=== PATIENT | male | born 1960 | race African-American/Black ===

== ENCOUNTER 2017-02-23 18:07 | Emergency (ER) | payer SELFPAY ==
[~2017-02-23] VITALS: Ht 185.4 cm; Wt 78.9 kg
[~2017-02-23 18:07] MED LIST: FLUO20SO2 OR
[2017-02-23] MEDS ORDERED: TYLE325T5 PO (18:44)
--- NOTE | 2017-02-23 20:15 | ED PDOC ---
Post-Departure Follow-Up SPOKE WITH PT REGARDING VISIT TODAY. PT HAS A COUPLE MEDICAL COMPLAINTS (RIGHT ELBOW SWELLING, LEFT LEG/GROIN PAIN) AND THEN STATES HE IS, "SICK OF BEING SHIT ON BY EVERYONE ELSE." STATES HE LIVES IN A RUNDOWN HOUSE, ABOVE A COUPLE , "AND HE TREATS HIS LIKE SHIT. 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 DENIES ANY ACTIVE SUICIDAL OR HOMICIDAL THOUGHTS OR PLANS, BUT STATES , "SOME DAYS, I'M GLAD I DON'T HAVE A GUN OR ANY WEAPONS OF MASS DESTRUCTION. I THOUGHT ABOUT TELLING THE TRIAGE NURSE I WAS SUICIDAL BECAUSE I NEED 72 HOURS TO RELAX AND NOT BE STRESSED OUT." PT STATES HE FEELS HE WILL SNAP ONE DAY IF ANY ONE ELSE TAKES ADVANTAGE OF THE FACT THAT HE HELPS THEM WHEN NEEDED, BUT GETS NOTHING IN RETURN. KALEN HERZOG PA-C Feb 23, 2017 20:15
--- NOTE | 2017-02-23 20:40 | REPUSA ---
CLINICAL HISTORY: Pain. COMMENTS: Real time sonography with duplex doppler of the left lower extremity was performed with attention to the major deep venous structures. Evaluation reveals the left common femoral, superficial femoral and popliteal veins to be completely compressible without intraluminal thrombus. There is normal spontaneous phasic flow and augmentation. The greater saphenous/common femoral vein junction is patent. IMPRESSION: No evidence of DVT in left lower extremity.. Thank you for your kind referral of this patient.
[2017-02-23] MEDS ORDERED: NAPR500T PO (21:20)
[2017-02-23 21:23] VITALS: BP 130/84
--- NOTE | 2017-02-24 08:12 | REP ---
Clinical: Radiculopathy. Left lower extremity pain. Technique: AP, lateral, bilateral oblique and coned-down views of the lumbosacral spine. Findings: Alignment and lordosis maintained. No acute fracture / compression injury or subluxation. Mild multilevel degenerative changes include endplate sclerosis, early anterior spurring, and disc space narrowing. Impression: Mild multilevel degenerative changes Signed by Jonathan Ford MD 02/24/2017 08:04 A
== END 2017-02-23 21:31 | disposition home or self-care (01) ==
LOC: M ED 19:46
DX: M70.21 Olecranon bursitis, right elbow (principal); M54.16 Radiculopathy, lumbar region; Z91.030 Bee allergy status; F17.210 Nicotine dependence, cigarettes, uncomplicated

== ENCOUNTER 2017-03-23 05:26 | Inpatient (IN) | payer MEDICAID, SELFPAY ==
[~2017-03-23] VITALS: Ht 185.4 cm; Wt 74.4 kg
[~2017-03-23 05:26] MED LIST changes: +NAPR500T PO; +TYLE325T5 PO
[2017-03-23] MEDS ORDERED: HALOPERIDOL 5 MG/ML VIAL (J1630) IM ONE (05:45)
[2017-03-23] MEDS ORDERED: diphenhydrAMINE INJ 50MG/ML VIAL (J1200) IM ONE (05:45)
[2017-03-23] MEDS ORDERED: LORazepam 2 MG/ML VIAL (J2060) IM ONE (05:45)
[2017-03-23 06:22] LABS: MEAN CORPUSCULAR HEMOGLOBIN 33.2 pg (27.0-33.0); MEAN CORPUSCULAR HGB CONC 32.5 g/dl (32.0-36.5); MEAN CORPUSCULAR VOLUME 101.9 fl (80.0-96.0); WHITE BLOOD COUNT 4.3 K/mm3 (4.0-10.0)
[2017-03-23 06:51] LABS: ALBUMIN/GLOBULIN RATIO 1.29 (1.00-1.93); ALKALINE PHOSPHATASE 88 U/L (45-117); ALT/SGPT 21 U/L (12-78); ANION GAP 10 MEQ/L (8-16); AST/SGOT 22 U/L (15-37); BILIRUBIN,DIRECT < 0.1 MG/DL (0.0-0.2); BILIRUBIN,TOTAL 0.2 MG/DL (0.2-1.0); BLOOD UREA NITROGEN 18 MG/DL (7-18); CALCIUM LEVEL 7.8 MG/DL (8.5-10.1); CARBON DIOXIDE LEVEL 22 MEQ/L (21-32); CHLORIDE LEVEL 115 MEQ/L (98-107); CREATININE FOR GFR 1.19 MG/DL (0.70-1.30); GLOMERULAR FILTRATION RATE > 60.0 (>56); GLUCOSE, FASTING 107 MG/DL (70-105); POTASSIUM SERUM 3.6 MEQ/L (3.5-5.1); SODIUM LEVEL 147 MEQ/L (136-145); TOTAL PROTEIN 7.1 GM/DL (6.4-8.2)
[2017-03-23 07:47] LABS: METHADONE URINE NEGATIVE (NEGATIVE)
[2017-03-23] MEDS: NICOTINE 21MG/24HR 1 EA TRANSDERMAL TD SCH (09:00)
[2017-03-23] MEDS ORDERED: MAALOX 30 ML SUSP *UDC PO PRN (17:30)
[2017-03-23] MEDS ORDERED: LORazepam 2 MG TAB PO PRN (17:30)
[2017-03-23] MEDS ORDERED: MOM 30ML SUSPENSION UDC PO PRN (17:30)
[2017-03-23] MEDS ORDERED: ACETAMINOPHEN TAB 650MG DOSE (2X325MG) PO PRN (17:30)
[2017-03-23] MEDS ORDERED: NAPR500T2 PO (17:35)
[2017-03-23] MEDS ORDERED: THIAMINE 100 MG TAB PO ONE (17:45)
[2017-03-23 18:48] VITALS: BP 133/86
[2017-03-23 19:43] VITALS: BP 133/86
[2017-03-23] MEDS: MULTIVITAMINS/MINERALS THERAP 1 TAB PO SCH (22:17)
[2017-03-23] MEDS: FOLIC ACID 1 MG TAB PO SCH (22:17)
[2017-03-23] MEDS: traZODone 50 MG TAB PO PRN (22:17)
[2017-03-24 06:40] VITALS: BP 140/71
[2017-03-24] MEDS: NICOTINE 21MG/24HR 1 EA TRANSDERMAL TD SCH (09:00)
--- NOTE | 2017-03-24 09:38 | HPEPDOC ---
Medical History and Physical Date of Admission Mar 23, 2017 at 17:25 History and Physical PCP: None ATTENDING: Dr. Garcia Edwards HPI: 56yoF admitted to [facility] for MDD and substance use, being medically examined today. No acute medical complaints today. Pt becomes agitated with providing medical history. Denies any fevers, chills, weakness, fatigue, HURLEY, CP, SOB, cough, palpitations, abdominal pain, N/V/D or changes in bowel or bladder habits. PMHx: Depression Anxiety Tobacco use reduced vision- wears glasses. Chronic LBP. XR LS spine 02/23/17 degenerative changes. PSHX: cyst removed Left thigh 2014 SOCHX: Resides in: [place] Marital Status: Kids: 3 Employment: unemployed Tobacco use: 1ppd ETOH: states he consumes alcohol, but states he does not know how much. Illicit Drugs: Denies IV Drug Use: Denies Tattoos done unprofessionally: Denies FAMHX: Mother: Pt states unknown Father: , alcohol use, cirrhosis Siblings: 2 brothers, 2 sisters Alive, Pt states unknown Children: Unknown. Patient states they are adopted. ROS: As noted in HPI, otherwise 11pt ROS of systems reviewed and unremarkable. PE: GEN: 56yoM, appears older than stated age. Well-nourished, well developed. No acute distress. Alert and oriented x 3. Agitated at times during interview. HEENT: Normocephalic, atraumatic. Pupils are equal, round, and reactive to light. Extraocular movements are intact. No nystagmus appreciated. Sclera are nonicteric. Conjunctiva without injection. Nose midline. Nasal turbinates without bogginess. EACs both patent BL. TMs both visualized and gomez with good cone of light, no bulging or erythema. No facial asymmetry. Moist mucous membranes. Dentition fair. Pharynx pink and moist, no cobblestoning. Neck supple , trachea midline. No lymphadenopathy or thyromegaly appreciated. CHEST: Regular rate and rhythm, +S1, +S2 LUNGS: Clear to auscultation bilaterally. No wheezes, rales, or rhonchi. Breathing appears symmetric and easy. Patient is speaking in full sentences. No accessory muscle use. ABD: Round, soft, non-tender, non-distended. +Bowel sounds throughout. No rebound or guarding. No costovertebral angle tenderness. EXT: Pulses 2+ bilaterally dorsalis pedis and radial. No lower extremity edema appreciated. SKIN: [place], dry, warm. Capillary refill <2sec. No rashes. NEURO: Alert and oriented x 3. Cranial nerves III-XII are intact. No focal deficits appreciated. EKG: pending. A&P: 56yoF admitted to [facility] for MDD 1. Psych. Plan per Psychiatry. Obtain baseline EKG to assure the safety of psychiatric medications as they can prolong the QT interval. 2. Nicotine dependence. Patch available. 3. Hypernatremia. Pt states he is eating and drinking. Sodium noted to be 147. Recheck CMP. 4. Follow up. No Primary Care Provider. Will attempt to establish PCP on discharge. 5. H/O Substance abuse. Per psychiatry. Continue with MVI, Thiamine, and Folic Acid supplementation. 6. Staff member Ed present throughout exam. Vital Signs Vital Signs Date Time Temp Pulse Resp B/P (MAP) Pulse Ox O2 Delivery O2 Flow Rate FiO2 03/24/17 06:40 99.7 72 16 140/71 (94) 03/23/17 18:48 98 Room Air Laboratory Data Labs 24H Item Value Date Time Sodium Level 147 MEQ/L H 03/23/17 0612 Potassium Level 3.6 MEQ/L 03/23/17 0612 Chloride Level 115 MEQ/L H 03/23/17 0612 Carbon Dioxide Level 22 MEQ/L 03/23/17 0612 Anion Gap 10 MEQ/L 03/23/17 0612 Blood Urea Nitrogen 18 MG/DL 03/23/17 0612 Creatinine 1.19 MG/DL 03/23/17 0612 Glomerular Filtration Rate > 60.0 03/23/17 0612 Fasting Glucose 107 MG/DL H 03/23/17 0612 Calcium Level 7.8 MG/DL L 03/23/17 0612 Total Bilirubin 0.2 MG/DL 03/23/1712 Direct Bilirubin < 0.1 MG/DL 03/23/1712 Aspartate Amino Transf (AST/SGOT) 22 U/L 03/23/17 0612 Alanine Aminotransferase (ALT/SGPT) 21 U/L 03/23/17 0612 Alkaline Phosphatase 88 U/L 03/23/17 0612 Total Protein 7.1 GM/DL 4/26/17 0612 Albumin 4.0 GM/DL 03/23/17611 Albumin/Globulin Ratio 1.29 03/23/17611 Thyroid Stimulating Hormone (TSH) 1.710 uIU/ML 03/23/17611 White Blood Count 4.3 K/mm3 03/23/17611 Red Blood Count 3.98 M/mm3 L 03/23/1712 Hemoglobin 13.2 g/dl L 03/23/1712 Hematocrit 40.6 % L 03/23/17611 Mean Corpuscular Volume 101.9 fl H 03/23/17611 Mean Corpuscular Hemoglobin 33.2 pg H 03/23/17611 Mean Corpuscular Hemoglobin Concent 32.5 g/dl 03/23/17611 Red Cell Distribution Width 12.0 % 03/23/17611 Platelet Count 196 k/mm3 03/23/17611 Salicylates Level 3.3 MG/DL L 03/23/17611 Urine Opiates Screen NEGATIVE 03/23/17 0709 Urine Methadone Screen NEGATIVE 03/23/17 0709 Acetaminophen Level < 2.0 UG/ML L 03/23/17611 Urine Barbiturates Screen NEGATIVE 03/23/17 0709 Urine Phencyclidine Screen NEGATIVE 03/23/17 0709 Urine Amphetamines Screen NEGATIVE 03/23/17 0709 Urine Benzodiazepines Screen NEGATIVE 03/23/17 0709 Urine Cocaine Metabolite Screen NEGATIVE 03/23/17 0709 Urine Cannabinoids Screen POSITIVE H 03/23/17 0709 Ethyl Alcohol Level 0.245 % H 03/23/17611 Home Medications Scheduled PRN Acetaminophen (Tylenol) 325 Mg Tab, 650 MG PO Q4H PRN for PAIN OR FEVER Naproxen (Naproxen) 500 Mg Tab, 500 MG PO BID PRN for PAIN Allergies Coded Allergies: Wasp Venom Protein (Verified Allergy, Unknown, ANAPHYLAXIS, 03/23/17) PT CARRIES AN EPIPEN. Thuy Torres Mar 24, 2017 09:38
[2017-03-24] MEDS: MULTIVITAMINS/MINERALS THERAP 1 TAB PO SCH (09:55)
[2017-03-24] MEDS: THIAMINE 100 MG TAB PO SCH ×2 (09:55→21:35)
[2017-03-24] MEDS: FOLIC ACID 1 MG TAB PO SCH (09:55)
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
[2017-03-24 12:05] VITALS: BP 122/75
[2017-03-24 12:06] VITALS: BP 122/75
[2017-03-24 18:00] VITALS: BP 147/79
[2017-03-24] MEDS: traZODone 50 MG TAB PO PRN (21:35)
[2017-03-24 22:05] VITALS: BP 147/79
[2017-03-25 07:13] VITALS: BP 127/65
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
[2017-03-25 07:38] LABS: MEAN CORPUSCULAR HEMOGLOBIN 33.3 pg (27.0-33.0); MEAN CORPUSCULAR HGB CONC 33.1 g/dl (32.0-36.5); MEAN CORPUSCULAR VOLUME 100.5 fl (80.0-96.0); RED CELL DISTRIBUTION WIDTH 11.6 % (11.5-14.5); WHITE BLOOD COUNT 4.1 K/mm3 (4.0-10.0)
[2017-03-25 07:50] LABS: ANION GAP 7 MEQ/L (8-16); BLOOD UREA NITROGEN 18 MG/DL (7-18); CALCIUM LEVEL 8.6 MG/DL (8.5-10.1); CARBON DIOXIDE LEVEL 26 MEQ/L (21-32); CHLORIDE LEVEL 109 MEQ/L (98-107); CREATININE FOR GFR 1.16 MG/DL (0.70-1.30); GLOMERULAR FILTRATION RATE > 60.0 (>56); GLUCOSE, FASTING 99 MG/DL (70-105); POTASSIUM SERUM 4.1 MEQ/L (3.5-5.1); SODIUM LEVEL 142 MEQ/L (136-145)
[2017-03-25] MEDS: FOLIC ACID 1 MG TAB PO SCH (08:18)
[2017-03-25] MEDS: chlordiazePOXIDE 25 MG CAP PO SCH ×3 (08:18→20:45)
[2017-03-25] MEDS: MULTIVITAMINS/MINERALS THERAP 1 TAB PO SCH (08:19)
[2017-03-25] MEDS: THIAMINE 100 MG TAB PO SCH ×2 (08:19→20:45)
[2017-03-25] MEDS: NICOTINE 21MG/24HR 1 EA TRANSDERMAL TD SCH (08:20)
[2017-03-25 18:00] VITALS: BP 145/75
[2017-03-26 06:30] VITALS: BP 113/56
[2017-03-26] MEDS: FOLIC ACID 1 MG TAB PO SCH (07:46)
[2017-03-26] MEDS: chlordiazePOXIDE 25 MG CAP PO SCH ×3 (07:46→20:22)
[2017-03-26] MEDS: THIAMINE 100 MG TAB PO SCH (07:46)
[2017-03-26] MEDS: MULTIVITAMINS/MINERALS THERAP 1 TAB PO SCH (07:46)
[2017-03-26] MEDS: NICOTINE 21MG/24HR 1 EA TRANSDERMAL TD SCH (07:47)
--- NOTE | 2017-03-26 08:06 | ECGEPIP ---
Stationary ECG Study [facility] Test Date: 2017-03-25 Pat Name: RON MORELOS Department: Room: [place] [address] Gender: M Technical Instructor: LYNNE : 1960 Requested By: Thuy Torres Order Number: [id number] Reading MD: Andrea Wang Measurements Intervals [place] Rate: 70 P: 70 CO: 176 QRS: 68 QRSD: 90 T: 57 QT: 391 QTc: 422 Interpretive Statements Normal sinus rhythm Delayed anterior R wave progression Comparison tracing not on file Electronically Signed On 03-26-2017 8:06:31 EDT by Andrea Wang
[2017-03-26] MEDS: FLUoxetine 20 MG CAP PO SCH (09:27)
[2017-03-26 18:00] VITALS: BP 126/74
[2017-03-26] MEDS: traZODone 100 MG TAB PO PRN (20:22)
[2017-03-26] MEDS: NAPROXEN 250 MG TAB PO SCH (20:36)
[2017-03-27 07:00] VITALS: BP 124/75
[2017-03-27] MEDS: chlordiazePOXIDE 25 MG CAP PO SCH ×3 (08:22→20:06)
[2017-03-27] MEDS: MULTIVITAMINS/MINERALS THERAP 1 TAB PO SCH (08:22)
[2017-03-27] MEDS: FLUoxetine 20 MG CAP PO SCH (08:22)
[2017-03-27] MEDS: FOLIC ACID 1 MG TAB PO SCH (08:22)
[2017-03-27] MEDS: NAPROXEN 250 MG TAB PO SCH ×2 (08:22→20:07)
[2017-03-27] MEDS: NICOTINE 21MG/24HR 1 EA TRANSDERMAL TD SCH (08:24)
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
[2017-03-27 18:00] VITALS: BP 141/84
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
[2017-03-27] MEDS: traZODone 100 MG TAB PO PRN (20:06)
[2017-03-28 06:39] VITALS: BP 103/64
[2017-03-28] MEDS ORDERED: FLUO20CA9 PO (08:33)
[2017-03-28] MEDS: NICOTINE 21MG/24HR 1 EA TRANSDERMAL TD SCH (08:47)
[2017-03-28] MEDS: FLUoxetine 20 MG CAP PO SCH (08:50)
[2017-03-28] MEDS: chlordiazePOXIDE 25 MG CAP PO SCH (08:50)
[2017-03-28] MEDS: NAPROXEN 250 MG TAB PO SCH (08:50)
[2017-03-28] MEDS: MULTIVITAMINS/MINERALS THERAP 1 TAB PO SCH (08:50)
[2017-03-28] MEDS: FOLIC ACID 1 MG TAB PO SCH (08:50)
[2017-03-28] MEDS ORDERED: PROZ20CA11 PO (14:25)
[2017-03-28] MEDS ORDERED: PARO10SS GT (14:25)
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
== END 2017-03-28 10:00 | disposition home or self-care (01) | DRG 752 ==
LOC: M ED 08:08 → M ED INP 17:25 → M PSY 18:37
PROVIDERS: ADMIT Psychiatry & Neurology Psychiatry; ATTEND Psychiatry & Neurology Child & Adolescent Psychiatry
DX: F60.5 Obsessive-compulsive personality disorder (principal); E87.0 Hyperosmolality and hypernatremia; F10.20 Alcohol dependence, uncomplicated; F17.200 Nicotine dependence, unspecified, uncomplicated; Z91.038 Other insect allergy status

== ENCOUNTER 2017-03-28 13:48 | Emergency (ER) | payer MEDICAID, SELFPAY ==
[~2017-03-28 13:48] MED LIST changes: +FLUO20CA9 PO; +NAPR500T2 PO
[2017-03-28] MEDS ORDERED: PROZ20CA11 PO (14:25)
[2017-03-28] MEDS ORDERED: PARO10SS GT (14:25)
[2017-03-28 14:38] LABS: BASO % 0.5 % (0.0-1.0); EOS # 0.2 K/mm3 (0.0-0.50); EOS % 3.8 % (0.0-3.0); LARGE UNSTAINED CELL # 0.1 K/mm3 (0.0-0.4); LARGE UNSTAINED CELL % 1.3 % (0.0-4.0); LYMPH # 1.4 K/mm3 (1.5-4.5); LYMPH % 21.4 % (24.0-44.0); MEAN CORPUSCULAR HEMOGLOBIN 32.4 pg (27.0-33.0); MEAN CORPUSCULAR HGB CONC 32.4 g/dl (32.0-36.5); MEAN CORPUSCULAR VOLUME 100.1 fl (80.0-96.0); MONO # 0.3 K/mm3 (0.0-0.8); MONO % 5.5 % (0.0-5.0); NEUTROPHILS % 67.4 % (36.0-66.0); PLATELET COUNT, AUTOMATED 176 k/mm3 (150-450); RED CELL DISTRIBUTION WIDTH 11.7 % (11.5-14.5)
[2017-03-28 14:51] LABS: ALBUMIN 3.8 GM/DL (3.2-5.2); ALBUMIN/GLOBULIN RATIO 1.23 (1.00-1.93); ALKALINE PHOSPHATASE 66 U/L (45-117); ALT/SGPT 20 U/L (12-78); ANION GAP 3 MEQ/L (8-16); AST/SGOT 19 U/L (15-37); BILIRUBIN,DIRECT 0.1 MG/DL (0.0-0.2); BILIRUBIN,TOTAL 0.7 MG/DL (0.2-1.0); BLOOD UREA NITROGEN 20 MG/DL (7-18); CALCIUM LEVEL 8.7 MG/DL (8.5-10.1); CARBON DIOXIDE LEVEL 29 MEQ/L (21-32); CHLORIDE LEVEL 108 MEQ/L (98-107); CREATININE FOR GFR 1.16 MG/DL (0.70-1.30); GLOMERULAR FILTRATION RATE > 60.0 (>56); GLUCOSE, FASTING 92 MG/DL (70-105); POTASSIUM SERUM 3.9 MEQ/L (3.5-5.1); SODIUM LEVEL 140 MEQ/L (136-145); TOTAL PROTEIN 6.9 GM/DL (6.4-8.2)
[2017-03-28 15:18] VITALS: BP 129/74
== END 2017-03-28 15:22 | disposition home or self-care (01) ==
LOC: EDBD 13:48 → M ED 14:50
DX: R53.81 Other malaise (principal); R53.83 Other fatigue; F10.10 Alcohol abuse, uncomplicated; Z79.899 Other long term (current) drug therapy; Z91.038 Other insect allergy status
CPT/HCPCS: 36415; 80048; 80076; 85025; 99282; G0480

== ENCOUNTER 2017-05-05 08:10 | Emergency (ER) | payer MEDICAID, OTHER ==
[~2017-05-05] VITALS: Ht 185.4 cm; Wt 72.6 kg
[~2017-05-05 08:10] MED LIST changes: +PARO10SS GT; +PROZ20CA11 PO
[2017-05-05 08:18] VITALS: BP 139/80
[2017-05-05 09:35] LABS: MEAN CORPUSCULAR HEMOGLOBIN 34.1 pg (27.0-33.0); MEAN CORPUSCULAR HGB CONC 33.3 g/dl (32.0-36.5); MEAN CORPUSCULAR VOLUME 102.4 fl (80.0-96.0); RED CELL DISTRIBUTION WIDTH 12.3 % (11.5-14.5)
[2017-05-05 10:02] LABS: METHADONE URINE NEGATIVE (NEGATIVE)
[2017-05-05 10:15] LABS: ALBUMIN 3.7 GM/DL (3.2-5.2); ALBUMIN/GLOBULIN RATIO 1.16 (1.00-1.93); ALKALINE PHOSPHATASE 77 U/L (45-117); ALT/SGPT 35 U/L (12-78); ANION GAP 4 MEQ/L (8-16); AST/SGOT 24 U/L (15-37); BILIRUBIN,DIRECT 0.1 MG/DL (0.0-0.2); BILIRUBIN,TOTAL 0.3 MG/DL (0.2-1.0); BLOOD UREA NITROGEN 16 MG/DL (7-18); CALCIUM LEVEL 8.9 MG/DL (8.5-10.1); CARBON DIOXIDE LEVEL 30 MEQ/L (21-32); CHLORIDE LEVEL 111 MEQ/L (98-107); CREATININE FOR GFR 1.06 MG/DL (0.70-1.30); GLOMERULAR FILTRATION RATE > 60.0 (>56); GLUCOSE, FASTING 82 MG/DL (70-105); SODIUM LEVEL 145 MEQ/L (136-145); TOTAL PROTEIN 6.9 GM/DL (6.4-8.2)
== END 2017-05-05 10:26 | disposition home or self-care (01) ==
LOC: M ED 08:43
DX: F32.9 Major depressive disorder, single episode, unspecified (principal); F10.10 Alcohol abuse, uncomplicated; F17.200 Nicotine dependence, unspecified, uncomplicated; Z79.1 Long term (current) use of non-steroidal anti-inflammatories (NSAID); Z79.899 Other long term (current) drug therapy

== ENCOUNTER 2017-05-05 22:08 | Emergency (ER) | payer OTHER ==
[2017-05-06 00:33] LABS: MEAN CORPUSCULAR HEMOGLOBIN 32.8 pg (27.0-33.0); MEAN CORPUSCULAR HGB CONC 32.1 g/dl (32.0-36.5); MEAN CORPUSCULAR VOLUME 102.4 fl (80.0-96.0); RED CELL DISTRIBUTION WIDTH 12.4 % (11.5-14.5); WHITE BLOOD COUNT 4.6 K/mm3 (4.0-10.0)
[2017-05-06 00:54] LABS: METHADONE URINE NEGATIVE (NEGATIVE)
[2017-05-06 01:07] LABS: ALBUMIN 3.6 GM/DL (3.2-5.2); ALBUMIN/GLOBULIN RATIO 1.24 (1.00-1.93); ALKALINE PHOSPHATASE 74 U/L (45-117); ALT/SGPT 31 U/L (12-78); ANION GAP 6 MEQ/L (8-16); AST/SGOT 23 U/L (15-37); BILIRUBIN,DIRECT 0.1 MG/DL (0.0-0.2); BILIRUBIN,TOTAL 0.2 MG/DL (0.2-1.0); BLOOD UREA NITROGEN 17 MG/DL (7-18); CALCIUM LEVEL 8.6 MG/DL (8.5-10.1); CARBON DIOXIDE LEVEL 27 MEQ/L (21-32); CHLORIDE LEVEL 115 MEQ/L (98-107); CREATININE FOR GFR 1.15 MG/DL (0.70-1.30); GLOMERULAR FILTRATION RATE > 60.0 (>56); GLUCOSE, FASTING 58 MG/DL (70-105); POTASSIUM SERUM 3.6 MEQ/L (3.5-5.1); SODIUM LEVEL 148 MEQ/L (136-145); TOTAL PROTEIN 6.5 GM/DL (6.4-8.2)
[2017-05-06 05:30] VITALS: BP 127/73
== END 2017-05-06 11:25 | disposition home or self-care (01) ==
LOC: M ED 22:55
DX: F43.22 Adjustment disorder with anxiety (principal); F10.129 Alcohol abuse with intoxication, unspecified; F17.200 Nicotine dependence, unspecified, uncomplicated; Z79.899 Other long term (current) drug therapy

== ENCOUNTER 2018-07-12 14:35 | Emergency (ER) | payer MEDICAID, SELFPAY, OTHER ==
[2018-07-12] MEDS: BACLOFEN 10 MG TAB PO ×2 (15:54)
[2018-07-12] MEDS: PERCOCET 5MG/325MG TAB PO ×2 (15:56)
== END 2018-07-12 16:51 | disposition home or self-care (01) ==
LOC: M ED 14:35
DX: S33.5XXA Sprain of ligaments of lumbar spine, initial encounter (principal); X50.0XXA Overexertion from strenuous movement or load, initial encounter; Y92.9 Unspecified place or not applicable; Y93.89 Activity, other specified; Y99.9 Unspecified external cause status; F42.9 Obsessive-compulsive disorder, unspecified; F41.9 Anxiety disorder, unspecified; F32.9 Major depressive disorder, single episode, unspecified; Z72.0 Tobacco use; F12.10 Cannabis abuse, uncomplicated
CPT/HCPCS: 99283

== ENCOUNTER 2018-07-21 10:56 | Emergency (ER) | payer MEDICAID, SELFPAY ==
[2018-07-21] MEDS: diphenhydrAMINE 25 MG CAP PO ×2 (11:48)
== END 2018-07-21 12:09 | disposition home or self-care (01) ==
LOC: M ED 10:56
DX: T63.441A Toxic effect of venom of bees, accidental (unintentional), initial encounter (principal)
CPT/HCPCS: 99282

== ENCOUNTER 2021-02-19 18:44 | Inpatient (IN) | payer MEDICAID, SELFPAY ==
[~2021-02-19] VITALS: Ht 185.4 cm; Wt 86.5 kg
[~2021-02-19 18:44] MED LIST changes: +BACL10TA2 PO; +BENA25CA4 PO; +FLUO20CA22 PO; -FLUO20CA9 PO; +HYDR-3715 PO; +NAPR-837 PO; +NAPR-885 PO; -NAPR500T PO; -NAPR500T2 PO
[2021-02-19] MEDS ORDERED: LIDOCAINE 2% 5ML JELLY UROJET TOP ONE (19:00)
[2021-02-19] MEDS ORDERED: MIDAZOLAM 5MG/ML 1ML VIAL (J2250 PER 1MG) IM ONE ×2 (19:25→20:50)
[2021-02-19 21:34] LABS: HEMATOCRIT 42.7 % (42.0-52.0); MEAN CORPUSCULAR HEMOGLOBIN 33.3 pg (27.0-33.0); MEAN CORPUSCULAR HGB CONC 32.8 g/dl (32.0-36.5); MEAN CORPUSCULAR VOLUME 101.4 fl (80.0-96.0); PLATELET COUNT, AUTOMATED 199 10^3/uL (150-450); RED BLOOD COUNT 4.21 10^6/uL (4.30-6.10)
[2021-02-19 21:46] LABS: AMPHETAMINES LEVEL URINE NEGATIVE (NEGATIVE); BARBITURATES URINE NEGATIVE (NEGATIVE); BENZODIAZEPINES URINE POSITIVE (NEGATIVE); CANNABINOIDS URINE POSITIVE (NEGATIVE); COCAINE METABOLITE URINE NEGATIVE (NEGATIVE); METHADONE URINE NEGATIVE (NEGATIVE); OPIATES URINE NEGATIVE (NEGATIVE); PHENCYCLIDINE URINE NEGATIVE (NEGATIVE)
[2021-02-19 21:57] LABS: ACETAMINOPHEN LEVEL < 2.0 UG/ML (10.0-30.0); ALBUMIN 3.8 GM/DL (3.2-5.2); ALT/SGPT 56 U/L (12-78); BILIRUBIN,DIRECT 0.1 MG/DL (0.0-0.2); BILIRUBIN,TOTAL 0.3 MG/DL (0.2-1.0); BLOOD UREA NITROGEN 14 MG/DL (7-18); CALCIUM LEVEL 8.8 MG/DL (8.5-10.1); CARBON DIOXIDE LEVEL 25 MEQ/L (21-32); CHLORIDE LEVEL 112 MEQ/L (98-107); CREATININE FOR GFR 1.15 MG/DL (0.70-1.30); ETHYL ALCOHOL (ETHANOL) 0.264 % (0.000-0.010); GLOMERULAR FILTRATION RATE > 60.0 (>56); GLUCOSE, FASTING 85 MG/DL (70-100); POTASSIUM SERUM 3.6 MEQ/L (3.5-5.1); SALICYLATE LEVEL 3.9 MG/DL (5.0-30.0); SODIUM LEVEL 148 MEQ/L (136-145); TOTAL PROTEIN 7.2 GM/DL (6.4-8.2)
[2021-02-20] MEDS ORDERED: LORazepam 2 MG/ML VIAL IM ONE (00:10)
[2021-02-20] MEDS ORDERED: diphenhydrAMINE 50MG/ML VIAL (J1200) IM ONE (00:10)
[2021-02-20] MEDS ORDERED: HALOPERIDOL 5MG/ML VIAL (J1630 PER 1) IM ONE (00:10)
[2021-02-20] MEDS ORDERED: HALOPERIDOL 5MG/ML VIAL (J1630 PER 1) As Ordered ONE (00:11)
[2021-02-20] MEDS ORDERED: diphenhydrAMINE 50MG/ML VIAL (J1200) As Ordered ONE (00:11)
[2021-02-20] MEDS ORDERED: LORazepam 2 MG/ML VIAL As Ordered ONE (00:12)
[2021-02-20] MEDS: NICOTINE 21MG/24HR 1 EA TRANSDERMAL TD SCH (09:00)
[2021-02-20 09:40] LABS: RSV AMPLIFICATION NEGATIVE (NEGATIVE)
[2021-02-20] MEDS ORDERED: traZODone 50 MG TAB PO PRN (10:50)
[2021-02-20] MEDS ORDERED: ACETAMINOPHEN TAB 650MG DOSE (2X325MG) PO PRN (10:50)
[2021-02-20] MEDS ORDERED: MOM 30ML SUSPENSION UDC PO PRN (10:50)
[2021-02-20] MEDS ORDERED: MAALOX 30 ML SUSP *UDC PO PRN (10:50)
[2021-02-20 13:41] VITALS: BP 160/71
[2021-02-21 06:44] VITALS: BP 144/78
[2021-02-21] MEDS: NICOTINE 21MG/24HR 1 EA TRANSDERMAL TD SCH (08:48)
[2021-02-21 17:49] VITALS: BP 146/88
--- NOTE | 2021-02-21 21:04 | WAPSY-INT ---
[facility] PSYCH INITIAL ASSESSMENT DATE OF ADMISSION: 02/20/2021 DATE OF EVALUATION: 02/21/2021 HISTORY OF PRESENT ILLNESS: This patient is a 60-year-old male with a significant history of alcohol abuse and actually some depression. He was brought to the hospital after police received calls from witnesses who stated that the patient was trying to jump of the [address] bridge when the police arrived. He was rambling about a manager flight operations making him mad and about needing to get back to his mother's . The police stated that the patient actually attempted to jump off the bridge and they had to pull him down and he was very aggressive the whole time that he was being brought in the police car. He was banging his head and he reported he had been suicidal for a week. The patient stated that he basically is homeless and has been living in the streets basically. He admitted to hearing voices, specifically a man who tells him that "he needs a roommate". Today the patient was very angry and he would not answer any of my questions. He just wanted to know if he was going to be discharged today and when I told him he was not, he got up and left the room and slammed the door. PAST PSYCHIATRIC HISTORY: I am not really able to obtain information from the patient but I did review records from a prior hospitalization through the [facility] in, I believe it was 2017. At that time he had trouble with abusing alcohol too and he was reporting that he was feeling depressed, but it was felt that his main problem was alcohol abuse then. I did not see in that record that he had any history of suicidal attempts, but again I did not obtain direct history from the patient today. FAMILY HISTORY: Unknown. MEDICAL HISTORY: Unknown. SUBSTANCE ABUSE: The patient does have a significant history of abusing alcohol and toxicology was positive for cannabis. Abuse history is unknown whether he has had any history of abuse. PHYSICAL EXAMINATION: VITAL SIGNS: Blood pressure 144/78, pulse 70 and respirations 16. GENERAL APPEARANCE: He did not appear to be in any apparent distress. MUSCULOSKELETAL: I did not notice any problems with his gait or any involuntary movements in his extremities. I was not able to review other systems because the patient basically stormed out of the room. MENTAL STATUS EXAMINATION: I am not really able to complete the exam as the patient stormed out of the room. DIAGNOSIS: 1. Unspecified depressive disorder. 2. Alcohol use disorder. TREATMENT PLAN: At this point we will monitor the patient for possible withdrawal symptoms. So far his vitals are slightly increased. As I said this morning it was 144/78. We will further monitor him for his mood symptoms and consider medications if indicated. The patient did come in where he was apparently trying to jump off a bridge and so I really feel that we need to monitor him further for any suicidal thoughts and mood symptoms. MTDCaitlin
[2021-02-21] MEDS ORDERED: traZODone 50 MG TAB PO ONE (22:05)
[2021-02-22] MEDS ORDERED: LORazepam 1 MG TAB PO ONE (03:25)
[2021-02-22] MEDS: NICOTINE 21MG/24HR 1 EA TRANSDERMAL TD SCH (09:00)
[2021-02-22 17:26] VITALS: BP 142/82
[2021-02-22] MEDS: risperiDONE 1 MG TAB PO SCH (20:32)
[2021-02-22] MEDS: traZODone 50 MG TAB PO PRN (20:33)
[2021-02-23 06:43] VITALS: BP 141/78
[2021-02-23] MEDS: FLUoxetine 20 MG CAP PO SCH (08:01)
[2021-02-23] MEDS: NICOTINE 21MG/24HR 1 EA TRANSDERMAL TD SCH (08:01)
[2021-02-23 16:36] VITALS: BP 129/76
[2021-02-23] MEDS: risperiDONE 1 MG TAB PO SCH (20:24)
[2021-02-23] MEDS: traZODone 50 MG TAB PO PRN (20:26)
--- NOTE | 2021-02-23 23:17 | MHIPN ---
PROGRESS NOTE DATE: 02/23/2021 SUBJECTIVE: I am depressed and I have poor self esteem. I am homeless. OBJECTIVE: He is a 60-year-old male with history of depressive disorders, who was admitted because of suicidal thoughts, wanted to jump off the bridge. Currently isolating, not willing to go to the groups, depressed, however, compliant with his medications. He reported that he was noncompliant before coming to the hospital. MENTAL STATUS EXAMINATION: Appearance: Casually dressed, cooperative. Eye contact: Normal. Speech: Conversant. Affective: Constricted. Mood: Depressed. Thought process: Linear, goal directed. Thought content: Denied any delusions. Denied any suicidal or homicidal ideas. He is alert and oriented to time, place and person. Insight and judgment are poor. Vital Signs: Temperature 98.5, pulse 69, respiratory rate 16, blood pressure 129/76, pulse oximetry 95%. Labs: CBC within normal limits. Chemistries within normal limits. Toxicology: He was positive for cannabis and benzodiazepines. DIAGNOSIS: Depressive disorder not otherwise specified. PLAN: Continue: 1. Fluoxetine 20 mg once daily. 2. Risperidone 1 mg at night. 3. Trazodone 150 mg h.s. p.r.n. ESTIMATED LENGTH OF STAY: 3 to 4 days. TIME SPENT ON EVALUATION: 25 minutes.
[2021-02-24 06:24] VITALS: BP 137/75
[2021-02-24] MEDS: NICOTINE 21MG/24HR 1 EA TRANSDERMAL TD SCH (08:19)
[2021-02-24] MEDS: FLUoxetine 20 MG CAP PO SCH (08:20)
[2021-02-24 16:33] VITALS: BP 131/73
--- NOTE | 2021-02-24 17:04 | MHIPN ---
[facility] PROGRESS NOTE DATE: 02/22/2021 The patient today states that he did not sleep at all last night. He had taken his trazodone 50 mg and then I had to order another 50 mg for him. He tells me that he is always depressed, but he says then he ran out of Prozac recently, he is not sure of the dose. He says that in the past he was prescribed Risperdal although he is not sure of the dose and he really felt that that helped his mood. MENTAL STATUS EXAMINATION: This patient is alert and oriented times three. He is pleasant, he is cooperative today, he is verbally spontaneous. He says that his mood is depressed, affect appropriate. He denies suicidal or homicidal ideation, and he is not psychotic. There is no formal thought disorder noted. Concentration fair. Memory intact. Insight and judgment is fair. DIAGNOSES: Unspecified depressive disorder. Alcohol use disorder. Cannabis use disorder. TREATMENT PLAN: At this point, the patient is feeling very depressed and he says that this is chronic, so we will start the patient on Prozac 20 mg and Risperdal 1 mg nightly, and we will continue to monitor for mood symptoms and for continued resolution of suicidal ideation.
[2021-02-24] MEDS: traZODone 50 MG TAB PO PRN (20:34)
[2021-02-24] MEDS: risperiDONE 1 MG TAB PO SCH (20:34)
--- NOTE | 2021-02-24 22:22 | MHIPN ---
PROGRESS NOTE DATE: 02/24/2021 SUBJECTIVE: I feel fine. I should go out tomorrow. OBJECTIVE: He is a 60-year-old male who has a history of depression, attempted suicide by jumping off a bridge and was brought to the police. Currently patient is improving, interacting with peers and staff. Denies any suicidal thoughts. MENTAL STATUS EXAMINATION: Casually dressed with clean clothes. Cooperative. Made good eye contact. Speech rate, rhythm and volume are good. Mood is euthymic. Affect is appropriate for the mood. Denied any suicidal or homicidal ideas. Thought content; no delusions. His insight and judgment are fair. His memory remote, recent, and immediate are good. DIAGNOSIS: Major depressive disorder recurrent. Vital signs: Temperature 98.0, respiratory rate 16, pulse 68, blood pressure 131/73, pulse oximetry 99%. Toxicology was positive for benzodiazepines and cannabis. CURRENT MEDICATIONS: 1. Fluoxetine 20 mg in the a.m. 2. Risperidone 1 mg at night. PLAN: Continue current medications. Consider discharging him tomorrow to [facility].
[2021-02-25 06:31] VITALS: BP 134/74
[2021-02-25] MEDS: FLUoxetine 20 MG CAP PO SCH (08:04)
[2021-02-25] MEDS: NICOTINE 21MG/24HR 1 EA TRANSDERMAL TD SCH (08:04)
[2021-02-25] MEDS ORDERED: FLUO20CA22 PO (09:40)
[2021-02-25] MEDS ORDERED: RISP-8 PO (09:40)
[2021-02-25] MEDS ORDERED: TRAZ-252 PO (09:40)
--- NOTE | 2021-02-25 11:30 | HPEPDOC ---
[facility] Medical History & Physical Date of Admission Feb 23, 2021 Date of Service: Feb 25, 2021 Vital Signs Vital Signs Date Time Temp Pulse Resp B/P (MAP) Pulse Ox O2 Delivery O2 Flow Rate FiO2 02/25/21 06:31 99.1 67 18 134/74 (94) 99 Room Air Home Medications Scheduled Fluoxetine Hcl (Fluoxetine HCl) 20 Mg Capsule, 20 MG PO QAM for depression Risperidone (Risperidone) 1 Mg Tablet, 1 MG PO QHS for mood Scheduled PRN Trazodone HCl (Trazodone HCl) 50 Mg Tablet, 150 MG PO QHSP PRN for INSOMNIA Allergies Coded Allergies: No Known Allergies (Unverified , 05/05/17) A-FIB/CHADSVASC A-FIB History Current/History of A-Fib/PAF?: No JEREMY MCKEON MD Feb 25, 2021 11:30
--- NOTE | 2021-02-25 11:42 | MHDS ---
[facility] DISCHARGE SUMMARY DATE OF ADMISSION: 02/20/2021 DATE OF DISCHARGE: 02/25/2021 DIAGNOSIS: Major depressive disorder, recurrent. IDENTIFYING DATA: He is a 60-year-old male with a history of depressive disorder. Was admitted because of suicidal thoughts. Wanted to jump off the bridge. For details of history of present illness (HPI), past psychiatric history, substance abuse history, medical history, family history, social history, please refer to the initial evaluation. COURSE IN THE HOSPITAL: Patient initially was severely depressed, contemplating suicidal thoughts. He was placed on fluoxetine 20 mg, risperidone 1 mg, and trazodone 150 mg just as needed. Also provided with individual, group, and milieu therapy. Patient was attending activities. He made gradual recovery and started attending groups more and more. His depression slowly resolved. Started sleeping better. His suicidal thoughts resolved. He was interacting well with peers and staff. Denied any side effect from the medication. Patient was stable at the time of discharge. MENTAL STATUS EXAMINATION: He is a tall, thin-built male who is cooperative. Makes good eye contact. Mood is euthymic. Affect is appropriate for the mood. Speech rate, rhythm, volume are good. Thought process is linear, goal directed. Thought content: Denied any suicidal or homicidal ideas. Denied any hopelessness. Denied auditory or visual hallucinations. His insight and judgment are good. His memory, immediate, remote, recent, is good. LABORATORY DATA: CBC within normal limits. Chemistry: CMP within normal limits. Patient's toxicology positive for cannabis and benzodiazepine. MEDICATIONS: - fluoxetine 20 mg once daily - trazodone 150 mg at bedtime as needed - risperidone 1 mg at bedtime Patient will go to [facility] ([facility]) and look for place to live through [facility]. He is to followup at [facility].
== END 2021-02-25 11:45 | disposition home or self-care (01) | DRG 751 ==
LOC: M ED 18:44 → M ED INP 02-20 10:47 → M PSY 02-20 13:12
PROVIDERS: ADMIT Psychiatry & Neurology Psychiatry; ATTEND Psychiatry & Neurology Psychiatry
DX: F33.9 Major depressive disorder, recurrent, unspecified (principal); R45.851 Suicidal ideations; F10.10 Alcohol abuse, uncomplicated

== ENCOUNTER 2021-07-19 14:47 | Emergency (ER) | payer MEDICAID, OTHER ==
[~2021-07-19 14:47] MED LIST changes: +FOLIC ACID 1 MG TAB PO SCH; +MULTIVITAMINS/MINERALS THERAP 1 TAB PO SCH; +RISP-8 PO; +TRAZ-252 PO
[2021-07-19] MEDS ORDERED: diphenhydrAMINE 50MG/ML VIAL (J1200) IM ONE (15:10)
[2021-07-19] MEDS ORDERED: LORazepam 2 MG/ML VIAL IM ONE (15:10)
[2021-07-19] MEDS ORDERED: HALOPERIDOL 5MG/ML VIAL (J1630 PER 1) IM ONE (15:10)
[2021-07-19 15:47] LABS: BASO % 0.5 % (0.0-1.0); EOS % 0.6 % (0.0-3.0); HEMATOCRIT 43.9 % (42.0-52.0); HEMOGLOBIN 14.5 g/dl (13.5-17.5); LYMPH # 2.7 10^3/uL (1.5-5.0); LYMPH % 41.3 % (24.0-44.0); MEAN CORPUSCULAR HEMOGLOBIN 33.7 pg (27.0-33.0); MEAN CORPUSCULAR VOLUME 102.1 fl (80.0-96.0); MONO # 0.6 10^3/uL (0.0-0.8); MONO % 9.9 % (2.0-8.0); NEUTROPHILS # 3.1 10^3/uL (1.5-8.5); NEUTROPHILS % 47.5 % (36.0-66.0); PLATELET COUNT, AUTOMATED 212 10^3/uL (150-450); WHITE BLOOD COUNT 6.5 10^3/uL (4.0-10.0)
[2021-07-19 16:11] LABS: AMPHETAMINES LEVEL URINE NEGATIVE (NEGATIVE); BARBITURATES URINE NEGATIVE (NEGATIVE); BENZODIAZEPINES URINE NEGATIVE (NEGATIVE); CANNABINOIDS URINE POSITIVE (NEGATIVE); COCAINE METABOLITE URINE NEGATIVE (NEGATIVE); METHADONE URINE NEGATIVE (NEGATIVE); OPIATES URINE NEGATIVE (NEGATIVE); PHENCYCLIDINE URINE NEGATIVE (NEGATIVE)
[2021-07-19 16:27] LABS: ACETAMINOPHEN LEVEL < 2.0 UG/ML (10.0-30.0); ALBUMIN 3.9 GM/DL (3.2-5.2); ALT/SGPT 27 U/L (12-78); BILIRUBIN,DIRECT 0.2 MG/DL (0.0-0.2); BILIRUBIN,TOTAL 0.5 MG/DL (0.2-1.0); BLOOD UREA NITROGEN 18 MG/DL (7-18); CARBON DIOXIDE LEVEL 28 MEQ/L (21-32); CHLORIDE LEVEL 111 MEQ/L (98-107); CREATININE FOR GFR 1.39 MG/DL (0.70-1.30); ETHYL ALCOHOL (ETHANOL) 0.239 % (0.000-0.010); GLOMERULAR FILTRATION RATE > 60.0 (>56); GLUCOSE, FASTING 90 MG/DL (70-100); POTASSIUM SERUM 3.9 MEQ/L (3.5-5.1); SODIUM LEVEL 146 MEQ/L (136-145); THYROID STIMULATING HORMONE 0.482 uIU/ML (0.358-3.740); TOTAL PROTEIN 7.8 GM/DL (6.4-8.2)
[2021-07-19] MEDS ORDERED: LORazepam 2 MG TAB PO PRN (18:45)
[2021-07-19] MEDS ORDERED: THIAMINE 100 MG TAB PO SCH (21:00)
[2021-07-20] MEDS ORDERED: HOME MED LIST COMPLETE! XX SCH (06:15)
[2021-07-20 08:02] VITALS: BP 132/79
== END 2021-07-20 08:04 | disposition home or self-care (01) ==
LOC: M ED 14:47
DX: F10.120 Alcohol abuse with intoxication, uncomplicated (principal); F33.9 Major depressive disorder, recurrent, unspecified; F17.200 Nicotine dependence, unspecified, uncomplicated
CPT/HCPCS: 80048; 80076; 80143; 80307; 82077; 84443; 85025; 96372; 99285; J1200; J1630; J2060

== ENCOUNTER 2021-08-09 17:10 | Emergency (ER) | payer OTHER ==
[~2021-08-09] VITALS: Ht 185.4 cm; Wt 77.3 kg
[~2021-08-09 17:10] MED LIST changes: -FOLIC ACID 1 MG TAB PO SCH; -MULTIVITAMINS/MINERALS THERAP 1 TAB PO SCH
[2021-08-09 18:18] LABS: HEMATOCRIT 44.4 % (42.0-52.0); HEMOGLOBIN 14.6 g/dl (13.5-17.5); MEAN CORPUSCULAR HEMOGLOBIN 33.8 pg (27.0-33.0); MEAN CORPUSCULAR HGB CONC 32.9 g/dl (32.0-36.5); MEAN CORPUSCULAR VOLUME 102.8 fl (80.0-96.0); PLATELET COUNT, AUTOMATED 217 10^3/uL (150-450); RED BLOOD COUNT 4.32 10^6/uL (4.30-6.10); WHITE BLOOD COUNT 5.1 10^3/uL (4.0-10.0)
[2021-08-09] MEDS ORDERED: LORazepam 2 MG/ML VIAL As Ordered ONE (18:29)
[2021-08-09] MEDS ORDERED: OLANZapine INTRAMUSCULAR 10MG VIAL IM ONE (18:30)
[2021-08-09] MEDS ORDERED: LORazepam 2 MG/ML VIAL IM ONE (18:30)
[2021-08-09 18:48] LABS: AMPHETAMINES LEVEL URINE NEGATIVE (NEGATIVE); BARBITURATES URINE NEGATIVE (NEGATIVE); BENZODIAZEPINES URINE NEGATIVE (NEGATIVE); CANNABINOIDS URINE POSITIVE (NEGATIVE); COCAINE METABOLITE URINE NEGATIVE (NEGATIVE); METHADONE URINE NEGATIVE (NEGATIVE); OPIATES URINE NEGATIVE (NEGATIVE); PHENCYCLIDINE URINE NEGATIVE (NEGATIVE)
[2021-08-09 19:00] LABS: ALBUMIN 3.7 GM/DL (3.2-5.2); ALT/SGPT 30 U/L (12-78); BILIRUBIN,DIRECT 0.1 MG/DL (0.0-0.2); BILIRUBIN,TOTAL 0.3 MG/DL (0.2-1.0); BLOOD UREA NITROGEN 16 MG/DL (7-18); CALCIUM LEVEL 8.8 MG/DL (8.5-10.1); CARBON DIOXIDE LEVEL 32 MEQ/L (21-32); CHLORIDE LEVEL 112 MEQ/L (98-107); CREATININE FOR GFR 1.07 MG/DL (0.70-1.30); ETHYL ALCOHOL (ETHANOL) 0.281 % (0.000-0.010); GLOMERULAR FILTRATION RATE > 60.0 (>56); GLUCOSE, FASTING 83 MG/DL (70-100); POTASSIUM SERUM 3.6 MEQ/L (3.5-5.1); SALICYLATE LEVEL 2.8 MG/DL (5.0-30.0); SODIUM LEVEL 149 MEQ/L (136-145); THYROID STIMULATING HORMONE 0.417 uIU/ML (0.358-3.740); TOTAL PROTEIN 7.3 GM/DL (6.4-8.2)
[2021-08-09 19:01] LABS: ACETAMINOPHEN LEVEL < 2.0 UG/ML (10.0-30.0)
[2021-08-09] MEDS ORDERED: HOME MED LIST COMPLETE! XX SCH (19:35)
[2021-08-09 20:25] LABS: RSV AMPLIFICATION NEGATIVE (NEGATIVE)
[2021-08-10 07:50] VITALS: BP 144/71
--- NOTE | 2021-08-10 09:42 | MHCRPDOC ---
[facility] Consultation Consultation DATE OF CONSULTATION: 08/10/21 CONSULTATION REQUESTED BY: REASON FOR CONSULTATION: . * Pt was brougt to the ED by police on a 9.41 after calling 911 twice & rep orting SI, stating that he wished he had a gun so that the police would kill him. Pt eloped from the ED & was brought back by [facility] less then ten minutes later. Pt was agitated & uncooperative & required physical & chemical restraints. Pt was intoxicated upon arrival. * Pt came out of his room around 0230 & asked "Where am I? How did I get here?" TW met with pt at 0400 & pt was highly irritable. Pt states that he does not remember anything that happened yesterday [employer]. He states that he did not drink because "there was no alcohol around." TW pointed out that his EUNICE was 0.281 upon arrival & pt stated that he does not remember drinking. He states that he does not remember being brought to the ED by police. He also states that he does not remember calling 911 or making any suicidal statements. Pt initially denied SI to TW, but then later admitted to passive SI. Pt is a poor historian & answers "I don't know" to many of the questions TW asked. Pt denies HI. When asked about previous suicide attempts pt initially denied any prior attempts, but TW pointed out that, per pt's EMR, he tried to jump off a bridge in January 2021 & that he had at least one other suicide attempt where he was laying in the road attempting to get hit by a car. At that point, pt became angry & asked TW "Why are you asking me all these questions if you already know the answers?" Pt then stated that he did try to jump off a bridge & that he had one or two other attempts, but stated that he does not remember how he attempted on those occasions. He denies any hx of self-harm. Pt denies both AH & VH. He does not appear to be psychotic. Pt c/o depressed mood, anxiety, & poor sleep. However, when TW asked him the anxiety questions on the PHQ-4 he initially stated that he does not have anxiety & then TW reminded him that he already admitted to having anxiety he answered the questions. He refused to answer the two depression questions, stating "I don't know. You can't force me to answer these questions if I don't know the answers." Pt states that his main stressors are that he is homeless & he has financial px's. Pt has a hx of depression & alcohol abuse with three admissions to [facility]. He does not currently have OP tx. He states that he is supposed to be on Prozac & Risperdal but does not take them. Pt reports MJ use & his tox screen was positive for cannabis. He reports that he drinks a pint of liquor twice a week. Patient states that he does not remember drinking but then remembered that he drank 9 bottles of Triston Brady he is presently employed at [employer]. He has had no outpatient follow-up he was supposed to be based on his last inpatient visit on Prozac and Risperdal. There are notes of the past history of attempts to jump off a bridge and laying in the road. All of these were under the influence of alcohol PAST PSYCHIATRIC HISTORY: As above PAST MEDICAL HISTORY: No information at this time FAMILY HISTORY: Mother: No information at this time Father: No information at this time Siblings: No information at this time Children: No information at this time PERSONAL AND SOCIAL HISTORY: The patient was born and raised in [place]. Resides in: [place] Marital Status: W / Children: No information at this time Employment: [employer] HISTORY: Smoking: None ETOH: Significant alcohol intake chronic Illicit Drugs: None LEGAL HISTORY: . MENTAL STATUS EXAMINATION: Patient is a 60-year old male, who is requesting discharge. Speech is normal. Language skills are no significant distortion. Thought processes including: No thought disorder. Thought content: No thought disorder. Abstract reasoning, and computation: Able to abstract. Description of associations: No loose associations. Description of abnormal or psychotic thoughts: No psychotic thought. Judgment: Improved. Insight: Fair. Orientation to x3. Recent and remote memory: Poor memory of recent incidences. Attention span and concentration: Intact. Language: No disturbance. Fund of knowledge: Full. Mood: Good. Affect: Bright. DIAGNOSIS: 1. Alcohol dependence. PLAN: 1. May be discharged. No outpatient plans due to patient noncompliance. Vital Signs Vital Signs Date Time Temp Pulse Resp B/P (MAP) Pulse Ox O2 Delivery O2 Flow Rate FiO2 08/10/21 07:50 98.1 78 18 144/71 (95) 97 Room Air Laboratory Data 24H Labs Laboratory Tests 2 08/09/21 18:07: Nucleated Red Blood Cells % (auto) 0.0, Anion Gap 5L, Glomerular Filtration Rate > 60.0, Calcium Level 8.8, Total Bilirubin 0.3, Direct Bilirubin 0.1, Aspartate Amino Transf (AST/SGOT) 28, Alanine Aminotransferase (ALT/SGPT) 30, Alkaline Phosphatase 80, Total Protein 7.3, Albumin 3.7, Albumin/Globulin Ratio 1.0, Thyroid Stimulating Hormone (TSH) 0.417, Salicylates Level 2.8L, Urine Opiates Screen NEGATIVE, Urine Methadone Screen NEGATIVE, Acetaminophen Level < 2.0L, Urine Barbiturates Screen NEGATIVE, Urine Phencyclidine Screen NEGATIVE, Urine Amphetamines Screen NEGATIVE, Urine Benzodiazepines Screen NEGATIVE, Urine Cocaine Metabolite Screen NEGATIVE, Urine Cannabinoids Screen POSITIVEH, Ethyl Alcohol Level 0.281H 08/09/21 19:36: Coronavirus (COVID-19)(PCR) NEGATIVE, Influenza Type A (RT-PCR) NEGATIVE, Influenza Type B (RT-PCR) NEGATIVE, Respiratory Syncytial Virus (PCR) NEGATIVE Home Medications Current Medications Current Medications Medications (Trade) Dose Ordered Sig/Radha Route PRN Reason Start Time Stop Time Status Last Admin Dose Admin Home Med (Home Med List Complete!) ASDIRECTED XX 08/09/21 19:35 08/09/21 19:35 DC Unable to Obtain Active Prescriptions or Reported Meds Allergies Coded Allergies: No Known Allergies (Unverified , 05/05/17) PRISCILLA CONNORS MD Aug 10, 2021 09:42
== END 2021-08-10 12:33 | disposition home or self-care (01) ==
LOC: M ED 17:10
DX: F10.120 Alcohol abuse with intoxication, uncomplicated (principal); F43.0 Acute stress reaction; R45.851 Suicidal ideations; F17.200 Nicotine dependence, unspecified, uncomplicated; F32.9 Major depressive disorder, single episode, unspecified
CPT/HCPCS: 36415; 80048; 80076; 80143; 80307; 82077; 84443; 85027; 87631; 96372; 99285; J2060

== ENCOUNTER 2022-04-24 13:29 | Inpatient (IN) | payer OTHER ==
[~2022-04-24] VITALS: Ht 185.4 cm; Wt 76.3 kg
[2022-04-24] MEDS ORDERED: OLANZapine INTRAMUSCULAR 10MG VIAL IM ONE ×2 (13:45→21:35)
[2022-04-24] MEDS ORDERED: LORazepam 2 MG/ML VIAL IM ONE ×2 (13:45→21:35)
[2022-04-24] MEDS ORDERED: OLANZapine ORAL DISINTEGRATING TAB 5MG PO ONE (13:55)
[2022-04-24 14:14] LABS: HEMATOCRIT 42.3 % (42.0-52.0); HEMOGLOBIN 14.2 g/dl (13.5-17.5); MEAN CORPUSCULAR HEMOGLOBIN 33.5 pg (27.0-33.0); MEAN CORPUSCULAR HGB CONC 33.6 g/dl (32.0-36.5); MEAN CORPUSCULAR VOLUME 99.8 fl (80.0-96.0); PLATELET COUNT, AUTOMATED 236 10^3/uL (150-450); RED BLOOD COUNT 4.24 10^6/uL (4.30-6.10); WHITE BLOOD COUNT 5.2 10^3/uL (4.0-10.0)
[2022-04-24 14:28] LABS: AMPHETAMINES LEVEL URINE NEGATIVE (NEGATIVE); BARBITURATES URINE NEGATIVE (NEGATIVE); BENZODIAZEPINES URINE NEGATIVE (NEGATIVE); CANNABINOIDS URINE POSITIVE (NEGATIVE); COCAINE METABOLITE URINE NEGATIVE (NEGATIVE); METHADONE URINE NEGATIVE (NEGATIVE); OPIATES URINE NEGATIVE (NEGATIVE); PHENCYCLIDINE URINE NEGATIVE (NEGATIVE)
[2022-04-24 14:38] LABS: ACETAMINOPHEN LEVEL < 2.0 UG/ML (10.0-30.0); ALBUMIN 3.7 GM/DL (3.2-5.2); ALT/SGPT 29 U/L (12-78); BILIRUBIN,DIRECT 0.2 MG/DL (0.0-0.2); BILIRUBIN,TOTAL 0.5 MG/DL (0.2-1.0); BLOOD UREA NITROGEN 12 MG/DL (7-18); CALCIUM LEVEL 9.5 MG/DL (8.5-10.1); CARBON DIOXIDE LEVEL 26 MEQ/L (21-32); CHLORIDE LEVEL 111 MEQ/L (98-107); CREATININE FOR GFR 1.24 MG/DL (0.70-1.30); ETHYL ALCOHOL (ETHANOL) 0.168 % (0.000-0.010); GLOMERULAR FILTRATION RATE > 60.0 (>56); GLUCOSE, FASTING 145 MG/DL (70-100); POTASSIUM SERUM 3.6 MEQ/L (3.5-5.1); SALICYLATE LEVEL 2.7 MG/DL (5.0-30.0); SODIUM LEVEL 145 MEQ/L (136-145); TOTAL PROTEIN 7.7 GM/DL (6.4-8.2)
[2022-04-24 15:00] LABS: RSV AMPLIFICATION NEGATIVE (NEGATIVE)
[2022-04-24] MEDS ORDERED: HOME MED LIST COMPLETE! XX SCH (17:35)
[2022-04-25] MEDS ORDERED: LORazepam 2 MG TAB PO ONE (12:35)
[2022-04-26] MEDS ORDERED: LORazepam 2 MG TAB PO PRN (13:05)
[2022-04-26] MEDS ORDERED: MOM 30ML SUSPENSION UDC PO PRN (13:05)
[2022-04-26] MEDS ORDERED: MAALOX 30 ML SUSP *UDC PO PRN (13:05)
[2022-04-26] MEDS ORDERED: traZODone 50 MG TAB PO PRN (13:05)
[2022-04-26] MEDS ORDERED: ACETAMINOPHEN TAB 650MG DOSE (2X325MG) PO PRN (13:05)
[2022-04-26 15:32] VITALS: BP 172/86
[2022-04-26] MEDS: THIAMINE 100 MG TAB PO SCH ×2 (16:52→21:38)
[2022-04-26] MEDS: MULTIVITAMINS/MINERALS THERAP 1 TAB PO SCH (17:33)
[2022-04-26] MEDS: FOLIC ACID 1 MG TAB PO SCH (17:33)
[2022-04-26 21:05] VITALS: BP 126/75
[2022-04-27 06:21] VITALS: BP 137/81
[2022-04-27 06:22] VITALS: BP 137/81
[2022-04-27] MEDS ORDERED: FLUBLOK(EGG FREE)(QUAD)INFLUENZA VACC 0.5ML SYRINGE 18YRS & OLDER IM ONE (09:00)
[2022-04-27] MEDS: MULTIVITAMINS/MINERALS THERAP 1 TAB PO SCH (09:35)
[2022-04-27] MEDS: FOLIC ACID 1 MG TAB PO SCH (09:35)
[2022-04-27] MEDS: THIAMINE 100 MG TAB PO SCH ×2 (09:36→20:30)
[2022-04-27] MEDS: LORazepam 2 MG TAB PO PRN ×2 (13:28→21:30)
[2022-04-27 18:00] VITALS: BP 137/73
[2022-04-27] MEDS: risperiDONE 2 MG TAB PO SCH (20:30)
[2022-04-27] MEDS: traZODone 100 MG TAB PO PRN (20:30)
[2022-04-27] MEDS: FLUoxetine 20MG CAP PO SCH (20:30)
[2022-04-27 22:00] VITALS: BP 148/95
[2022-04-28 05:55] VITALS: BP 143/69
[2022-04-28 06:00] VITALS: BP 142/80
[2022-04-28] MEDS: THIAMINE 100 MG TAB PO SCH ×2 (08:35→20:17)
[2022-04-28] MEDS: MULTIVITAMINS/MINERALS THERAP 1 TAB PO SCH (08:35)
[2022-04-28] MEDS: FOLIC ACID 1 MG TAB PO SCH (08:35)
[2022-04-28 18:00] VITALS: BP 133/77
[2022-04-28] MEDS: risperiDONE 2 MG TAB PO SCH (20:17)
[2022-04-28] MEDS: traZODone 100 MG TAB PO PRN (20:17)
[2022-04-28] MEDS: FLUoxetine 20MG CAP PO SCH (20:17)
[2022-04-28 22:00] VITALS: BP 127/74
[2022-04-29 05:55] VITALS: BP 143/69
[2022-04-29] MEDS ORDERED: FLUO20CA22 PO (10:06)
[2022-04-29] MEDS ORDERED: TRAZ-257 PO (10:06)
[2022-04-29] MEDS ORDERED: RISP-9 PO (10:06)
[2022-04-29] MEDS: FOLIC ACID 1 MG TAB PO SCH (10:51)
[2022-04-29] MEDS: MULTIVITAMINS/MINERALS THERAP 1 TAB PO SCH (10:51)
== END 2022-04-29 11:10 | disposition home or self-care (01) | DRG 754 ==
LOC: M ED 13:29 → M ED INP 04-26 13:03 → M PSY 04-26 15:26
PROVIDERS: ADMIT Student in an Organized Health Care Education/Training Program; ATTEND Psychiatry & Neurology Psychiatry
DX: F32.A Depression, unspecified (principal); Z78.1 Physical restraint status; F17.200 Nicotine dependence, unspecified, uncomplicated; F10.10 Alcohol abuse, uncomplicated; F12.90 Cannabis use, unspecified, uncomplicated; F41.9 Anxiety disorder, unspecified; M54.59 Other low back pain

== ENCOUNTER 2022-07-14 17:13 | Emergency (ER) | payer OTHER ==
[~2022-07-14] VITALS: Ht 185.4 cm; Wt 79.7 kg
[~2022-07-14 17:13] MED LIST changes: +RISP-9 PO; +TRAZ-257 PO
[2022-07-14 17:14] VITALS: BP 166/87
== END 2022-07-14 18:13 | disposition left against medical advice (07) ==
LOC: M ED 17:13
DX: Z53.21 Procedure and treatment not carried out due to patient leaving prior to being seen by health care provider (principal)

== ENCOUNTER 2024-03-04 10:58 | Emergency (ER) | payer OTHER ==
[~2024-03-04] VITALS: Ht 185.4 cm; Wt 73.3 kg
[~2024-03-04 10:58] MED LIST changes: +RISP-105 PO; +RISP-106 PO; -RISP-8 PO; -RISP-9 PO
[2024-03-04 12:25] LABS: BASO % 0.2 % (0.0-1.0); EOS # 0.1 10^3/uL (0.0-0.5); EOS % 0.3 % (0.0-3.0); HEMATOCRIT 43.8 % (42.0-52.0); HEMOGLOBIN 14.5 g/dl (13.5-17.5); LYMPH # 1.2 10^3/uL (1.5-5.0); LYMPH % 6.1 % (24.0-44.0); MEAN CORPUSCULAR HEMOGLOBIN 32.5 pg (27.0-33.0); MEAN CORPUSCULAR HGB CONC 33.1 g/dl (32.0-36.5); MEAN CORPUSCULAR VOLUME 98.2 fl (80.0-96.0); MONO # 1.1 10^3/uL (0.0-0.8); MONO % 5.7 % (2.0-8.0); NEUTROPHILS # 17.2 10^3/uL (1.5-8.5); NEUTROPHILS % 86.9 % (36.0-66.0); PLATELET COUNT, AUTOMATED 218 10^3/uL (150-450); RED BLOOD COUNT 4.46 10^6/uL (4.30-6.10); WHITE BLOOD COUNT 19.8 10^3/uL (4.0-10.0)
[2024-03-04 12:42] LABS: ALBUMIN 3.9 G/DL (3.2-5.2); BILIRUBIN,DIRECT 0.3 MG/DL (<0.4); BILIRUBIN,TOTAL 1.2 MG/DL (0.3-1.2); TOTAL PROTEIN 7.3 G/DL (5.7-8.2)
[2024-03-04] MEDS: KETOROLAC 30 MG/ML 1ML VIAL IV ONE (13:10)
[2024-03-04] MEDS: NS 1,000 ML IV ONE (13:10)
[2024-03-04] MEDS: cefTRIAXone SOD 1 GM in D5W MINI-BAG PLUS 50 ML IV ONE (13:10)
[2024-03-04] MEDS ORDERED: KETO10TAB PO (16:04)
[2024-03-04] MEDS ORDERED: CEFD1CAP9 PO (16:04)
[2024-03-04 16:23] VITALS: BP 134/76; TEMP 98.3; O2SAT 97
[2024-03-04 17:10] LABS: Trichomonas vaginalis (AMP) NOT DETECTED (NEGATIVE)
[2024-03-04 17:34] LABS: GC DNA AMPLIFICATION NEGATIVE (NEGATIVE)
== END 2024-03-04 16:25 | disposition home or self-care (01) ==
LOC: M ED 12:06
DX: N39.0 Urinary tract infection, site not specified (principal); N50.3 Cyst of epididymis; N44.2 Benign cyst of testis; I86.1 Scrotal varices; K21.9 Gastro-esophageal reflux disease without esophagitis; F17.200 Nicotine dependence, unspecified, uncomplicated; Z79.2 Long term (current) use of antibiotics; Z79.1 Long term (current) use of non-steroidal anti-inflammatories (NSAID)
CPT/HCPCS: 74176; 76870; 80047; 80076; 81001; 83690; 85025; 87088; 87186; 87661; 87810; 87850; 93976; 96365; 96366; 96375; 99284; J0696; J1885

== ENCOUNTER → 2024-03-15 | Outpatient (REF) | payer OTHER ==
[~2024-03-15] MED LIST changes: +CEFD1CAP9 PO; +KETO10TAB PO
[2024-03-15 18:20] LABS: APPEARANCE, URINE CLEAR (CLEAR); BACTERIA, URINE AUTO NEGATIVE (NEGATIVE); BILIRUBIN, URINE AUTO NEGATIVE (NEGATIVE); BLOOD, URINE BLOOD NEGATIVE (NEGATIVE); COLOR, URINE YELLOW (YELLOW); GLUCOSE, URINE (UA) AUTO NEGATIVE (NEGATIVE); KETONE, URINE AUTO TRACE mg/dL (NEGATIVE); LEUKOCYTE ESTERASE, URINE AUTO NEGATIVE (NEGATIVE); MUCUS, URINE SMALL (NEGATIVE); NITRITE, URINE AUTO NEGATIVE (NEGATIVE); PROTEIN, URINE AUTO NEGATIVE (NEGATIVE); RBC, URINE AUTO 0 /HPF (0-3); SQUAMOUS EPITHELIAL CELL UR AU 0 /HPF (0-6); WBC, URINE AUTO 0 /HPF (0-3)
== END ==
LOC: M SMT 16:56
PROVIDERS: ATTEND Urology
DX: Z87.440 Personal history of urinary (tract) infections (principal)

== ENCOUNTER 2024-04-23 16:38 | Inpatient (IN) | payer MEDICAID, OTHER, SELFPAY ==
[~2024-04-23] VITALS: Ht 185.4 cm; Wt 71.8 kg
[2024-04-23 17:12] LABS: HEMATOCRIT 39.9 % (42.0-52.0); HEMOGLOBIN 12.9 g/dl (13.5-17.5); MEAN CORPUSCULAR HEMOGLOBIN 31.6 pg (27.0-33.0); MEAN CORPUSCULAR HGB CONC 32.3 g/dl (32.0-36.5); MEAN CORPUSCULAR VOLUME 97.8 fl (80.0-96.0); PLATELET COUNT, AUTOMATED 228 10^3/uL (150-450); RED BLOOD COUNT 4.08 10^6/uL (4.30-6.10); WHITE BLOOD COUNT 5.5 10^3/uL (4.0-10.0)
[2024-04-23 17:41] LABS: ETHYL ALCOHOL (ETHANOL) 0.199 % (0.000-0.010)
[2024-04-23 17:43] LABS: ALBUMIN 3.9 G/DL (3.2-5.2); ALKALINE PHOSPHATASE 76 U/L (46-116); ALT/SGPT 18 U/L (7.0-40); AST/SGOT 25 U/L (<34); BILIRUBIN,DIRECT 0.2 MG/DL (<0.4); BILIRUBIN,TOTAL 0.7 MG/DL (0.3-1.2); BLOOD UREA NITROGEN 14 MG/DL (9-23); CALCIUM LEVEL 9.2 MG/DL (8.3-10.6); CARBON DIOXIDE LEVEL 25 MMOL/L (20-31); CHLORIDE LEVEL 110 MMOL/L (98-107); CREATININE FOR GFR 1.13 MG/DL (0.70-1.30); GLOMERULAR FILTRATION RATE > 60.0 (>49); GLUCOSE, FASTING 108 MG/DL (74-106); POTASSIUM SERUM 3.5 MMOL/L (3.5-5.1); SALICYLATE LEVEL < 3.0 MG/DL (<30); SODIUM LEVEL 143 MMOL/L (136-145)
[2024-04-23 17:45] LABS: THYROID STIMULATING HORMONE 0.782 uIU/ML (0.55-4.78)
[2024-04-23 19:00] LABS: BARBITURATES URINE NEGATIVE (NEGATIVE); COCAINE METABOLITE URINE NEGATIVE (NEGATIVE); METHADONE URINE NEGATIVE (NEGATIVE); OPIATES URINE NEGATIVE (NEGATIVE); PHENCYCLIDINE URINE NEGATIVE (NEGATIVE)
[2024-04-23 19:01] LABS: AMPHETAMINES LEVEL URINE NEGATIVE (NEGATIVE); BENZODIAZEPINES URINE NEGATIVE (NEGATIVE)
[2024-04-23 19:02] LABS: CANNABINOIDS URINE POSITIVE (NEGATIVE)
[2024-04-23] MEDS ORDERED: HOME MED LIST COMPLETE! XX SCH (23:35)
[2024-04-24 00:09] LABS: HIV 1&2 SCREEN NEGATIVE (NEGATIVE)
[2024-04-24] MEDS ORDERED: ACETAMINOPHEN TAB 650MG DOSE (2X325MG) PO PRN (13:45)
[2024-04-24] MEDS ORDERED: MOM 30ML SUSPENSION UDC PO PRN (13:45)
[2024-04-24] MEDS ORDERED: LORazepam 2 MG TAB PO PRN (13:45)
[2024-04-24 15:00] VITALS: BP 141/75; TEMP 98.2; O2SAT 100
[2024-04-24] MEDS: MULTIVITAMINS/MINERALS THERAP 1 TAB PO SCH (15:17)
[2024-04-24] MEDS: THIAMINE 100 MG TAB PO SCH (15:17)
[2024-04-24] MEDS: FOLIC ACID 1MG TAB PO SCH (15:17)
[2024-04-24] MEDS: IBUPROFEN 400MG TAB PO PRN (19:21)
[2024-04-25 06:21] VITALS: BP 147/74; TEMP 98.8; O2SAT 100
[2024-04-25 08:00] VITALS: BP 147/74
[2024-04-25] MEDS: FLUoxetine 20MG CAP PO SCH (12:02)
[2024-04-25] MEDS: MAALOX 30 ML SUSP *UDC PO PRN (13:29)
[2024-04-25] MEDS: PANTOPRAZOLE 40MG TAB (PROTONIX) PO SCH (16:25)
[2024-04-25] MEDS: SUCRALFATE SUSP 1GM/10ML UD PO SCH (16:32)
[2024-04-25 18:13] VITALS: BP 131/74; TEMP 97.9
[2024-04-25] MEDS: traZODone 50 MG TAB PO PRN (20:34)
[2024-04-26 06:14] VITALS: BP 134/76; TEMP 99; O2SAT 99
[2024-04-26] MEDS: diphenhydrAMINE 25MG CAP PO PRN (08:24)
[2024-04-26] MEDS: LORazepam 2 MG TAB PO ONE (08:28)
[2024-04-26] MEDS ORDERED: FOLI1TAB11 PO (09:41)
[2024-04-26] MEDS ORDERED: PANT40TA29 PO (09:41)
[2024-04-26] MEDS ORDERED: FLUO20CA22 PO (09:41)
[2024-04-26] MEDS ORDERED: Multivitamins PO (09:41)
[2024-04-26] MEDS ORDERED: SUCR1ORA PO (09:41)
[2024-04-26] MEDS ORDERED: TRAZ-252 PO (09:41)
[2024-04-26 14:05] VITALS: BP 136/75
[2024-04-26 16:44] VITALS: BP 136/75; TEMP 98.8; O2SAT 97
[2024-04-27 06:37] VITALS: BP 139/71; TEMP 97.8; O2SAT 99
== END 2024-04-27 09:02 | disposition home or self-care (01) | DRG 754 ==
LOC: M ED 16:38 → M ED INP 04-24 13:42 → M PSY 04-24 14:40
PROVIDERS: ADMIT Student in an Organized Health Care Education/Training Program; ATTEND Student in an Organized Health Care Education/Training Program
DX: F32.A Depression, unspecified (principal); F41.9 Anxiety disorder, unspecified; F17.200 Nicotine dependence, unspecified, uncomplicated; F12.90 Cannabis use, unspecified, uncomplicated; Z79.899 Other long term (current) drug therapy; F10.10 Alcohol abuse, uncomplicated; M54.59 Other low back pain; F42.9 Obsessive-compulsive disorder, unspecified

== ENCOUNTER 2024-12-21 18:14 | Emergency (ER) | payer MEDICAID, OTHER, SELFPAY ==
[~2024-12-21 18:14] MED LIST changes: +FLUO-365 PO; -FLUO20CA22 PO; +FOLI1TAB11 PO; +Multivitamins PO; +PANT40TA29 PO; +SUCR1ORA PO
[2024-12-21] MEDS: OLANZapine INTRAMUSCULAR 10MG VIAL IM ONE (18:27)
[2024-12-21] MEDS: LORazepam 2 MG/ML 1ML VIAL IM ONE (18:27)
[2024-12-21 18:43] LABS: HEMATOCRIT 39.4 % (42.0-52.0); HEMOGLOBIN 13.1 g/dl (13.5-17.5); MEAN CORPUSCULAR HEMOGLOBIN 33.2 pg (27.0-33.0); MEAN CORPUSCULAR HGB CONC 33.2 g/dl (32.0-36.5); MEAN CORPUSCULAR VOLUME 99.7 fl (80.0-96.0); PLATELET COUNT, AUTOMATED 187 10^3/uL (150-450); RED BLOOD COUNT 3.95 10^6/uL (4.30-6.10); WHITE BLOOD COUNT 5.6 10^3/uL (4.0-10.0)
[2024-12-21 19:10] LABS: ETHYL ALCOHOL (ETHANOL) 0.241 % (0.000-0.010)
[2024-12-21 19:11] LABS: SALICYLATE LEVEL < 3.0 MG/DL (<30)
[2024-12-21 19:12] LABS: ALKALINE PHOSPHATASE 72 U/L (40-129); ALT/SGPT 31 U/L (7.0-40); AST/SGOT 52 U/L (<34); BILIRUBIN,DIRECT 0.2 MG/DL (<0.4); BILIRUBIN,TOTAL 0.7 MG/DL (0.3-1.2); BLOOD UREA NITROGEN 17 MG/DL (9-23); CALCIUM LEVEL 8.9 MG/DL (8.3-10.6); CARBON DIOXIDE LEVEL 23 MMOL/L (20-31); CHLORIDE LEVEL 108 MMOL/L (98-107); CREATININE FOR GFR 0.99 MG/DL (0.70-1.30); GLOMERULAR FILTRATION RATE > 60.0 (>49); GLUCOSE, FASTING 95 MG/DL (74-106); POTASSIUM SERUM 3.6 MMOL/L (3.5-5.1); SODIUM LEVEL 144 MMOL/L (136-145); TOTAL PROTEIN 7.4 G/DL (5.7-8.2)
[2024-12-21 19:13] LABS: THYROID STIMULATING HORMONE 2.615 uIU/ML (0.55-4.78)
[2024-12-21 19:58] LABS: AMPHETAMINES LEVEL URINE NEGATIVE (NEGATIVE); BARBITURATES URINE NEGATIVE (NEGATIVE); BENZODIAZEPINES URINE NEGATIVE (NEGATIVE); COCAINE METABOLITE URINE NEGATIVE (NEGATIVE); METHADONE URINE NEGATIVE (NEGATIVE); OPIATES URINE NEGATIVE (NEGATIVE); PHENCYCLIDINE URINE NEGATIVE (NEGATIVE)
[2024-12-21 19:59] LABS: CANNABINOIDS URINE POSITIVE (NEGATIVE)
[2024-12-21] MEDS: LORazepam 2 MG/ML 1ML VIAL IM STA (20:13)
[2024-12-22] MEDS ORDERED: MED REC CURRENTLY UNOBTAINABLE XX SCH (02:40)
[2024-12-22] MEDS: FOLIC ACID 1MG TAB PO SCH (09:04)
[2024-12-22] MEDS: MULTIVITAMINS/MINERALS THERAP 1 TAB PO SCH (09:04)
[2024-12-22] MEDS: LORazepam 2 MG TAB PO PRN (09:04)
[2024-12-22] MEDS: THIAMINE 100 MG TAB PO SCH (09:04)
[2024-12-22] MEDS ORDERED: HOME MED LIST COMPLETE! XX SCH (09:30)
[2024-12-22 12:29] VITALS: BP 157/84; TEMP 97.8; O2SAT 98
== END 2024-12-22 12:41 | disposition home or self-care (01) ==
LOC: M ED 18:14
DX: R45.851 Suicidal ideations (principal); F10.129 Alcohol abuse with intoxication, unspecified; F32.A Depression, unspecified; F41.9 Anxiety disorder, unspecified; F12.10 Cannabis abuse, uncomplicated
CPT/HCPCS: 70450; 80048; 80076; 80143; 80307; 82077; 84443; 85027; 96372; 99284; J2060; J2359